=== PATIENT | male | born 1990 | race Hispanic/Latino ===

== ENCOUNTER 2020-05-29 08:47 | Emergency (ER) | payer OTHER ==
[2020-05-29 10:44] LABS: SARS-COV-2 RT PCR POSITIVE (NEGATIVE)
--- NOTE | 2020-05-29 10:49 | ER ---
Nurse's Notes [facility] Name: Marcelino Calderon Age: 29 yrs Sex: Male : 1990 Arrival Date: 05/29/2020 Time: 08:49 Bed 17 Private MD: Diagnosis: Coronavirus infection, unspecified;Viral pneumonia, unspecified Presentation: 05/29 09:28 Chief complaint: Patient states: i have been feverish for 3 days it comes and goes, my tw2 mom and dad came and they have covid and we live with them, dont have a cough, but i have NVD, decreased appetite, no taste or no smell, and body aches. Coronavirus screen: chills, diarrhea, fatigue, fever, muscle pain, nausea, loss of taste or smell, vomiting. Client presents with at least one sign or symptom that may indicate coronavirus-19. Standard/surgical mask placed on the client. Provider contacted for isolation considerations. Ebola Screen: Patient denies travel to an Ebola-affected area in the 21 days before illness onset. Initial Sepsis Screen: Does the patient meet any 2 criteria? No. Patient's initial sepsis screen is negative. Does the patient have a suspected source of infection? No. Patient's initial sepsis screen is negative. Risk Assessment: Do you want to hurt yourself or someone else? Patient reports no desire to harm self or others. Onset of symptoms was May 29, 2020. 09:28 Method Of Arrival: Ambulatory tw2 09:28 Acuity: RAFAEL 4 tw2 Triage Assessment: 09:30 General: Appears in no apparent distress. well groomed, Behavior is calm, cooperative, tw2 appropriate for age. Pain: Denies pain. EENT: No signs and/or symptoms were reported regarding the EENT system. Neuro: Level of Consciousness is awake, alert, obeys commands, Oriented to person, place, time, situation. Cardiovascular: Capillary refill < 3 seconds Patient's skin is warm and dry. Respiratory: Airway is patent Respiratory effort is even, unlabored, Respiratory pattern is regular, symmetrical. GI: Reports diarrhea, nausea, vomiting. : No signs and/or symptoms were reported regarding the genitourinary system. Derm: No signs and/or symptoms reported regarding the dermatologic system. Skin is intact, is healthy with good turgor. Musculoskeletal: Range of motion: intact in all extremities, pt reports body aches. Historical: - Allergies: :30 No Known Allergies; tw2 - Home Meds: :30 None [Active]; tw2 - PMHx: :30 Hypertension; tw2 - PSHx: :30 None; jaw surgery; tw2 - Immunization history:: Adult Immunizations. - Social history:: Smoking status: . Screenin:40 Abuse screen: Denies threats or abuse. Nutritional screening: No deficits noted. tw2 Tuberculosis screening: No symptoms or risk factors identified. Fall Risk None identified. Assessment: :31 Reassessment: see triage assessment. tw2 10:16 Reassessment: Patient appears in no apparent distress at this time. No changes from tw2 previously documented assessment. Patient and/or family updated on plan of care and expected duration. Pain level reassessed. Patient is alert, oriented x 3, equal unlabored respirations, skin warm/dry/pink. xray at bedside at this time. 11:03 Reassessment: Patient appears in no apparent distress at this time. No changes from tw2 previously documented assessment. Patient and/or family updated on plan of care and expected duration. Pain level reassessed. Patient is alert, oriented x 3, equal unlabored respirations, skin warm/dry/pink. Vital Signs: 09:28 BP 129 / 79; Pulse 95; Resp 18; Temp 97.6(O); Pulse Ox 95% on R/A; Weight 108.86 kg; tw2 Height 5 ft. 9 in. (175.26 cm); 10:16 BP 133 / 88; Pulse 92; Resp 19; Pulse Ox 94% on R/A; tw2 11:03 BP 128 / 86; Pulse 83; Resp 19; Pulse Ox 95% on R/A; tw2 09:28 Body Mass Index 35.44 (108.86 kg, 175.26 cm) tw2 ED Course: 08:49 Patient arrived in ED. ag5 09:17 Ervin Villafuerte PA is PHCP. jr8 09:17 Fabio Wang MD is Attending Physician. jr8 09:18 Bed in low position. Call light in reach. Pulse ox on. NIBP on. tw2 09:28 Yamile Nelson RN is Primary Nurse. tw2 09:30 Triage completed. tw2 09:31 Arm band placed on. tw2 09:40 No provider procedures requiring assistance completed. tw2 10:46 XRAY Chest (1 view) In Process Unspecified. EDMS 11:04 IV discontinued, intact, bleeding controlled, No redness/swelling at site. Pressure tw2 dressing applied. Administered Medications: No medications were administered Outcome: 10:48 Discharge ordered by MD. burnett 11:03 Discharged to home ambulatory. tw2 11:03 Condition: stable 11:03 Discharge instructions given to patient, Instructed on discharge instructions, follow up and referral plans. Demonstrated understanding of instructions, follow-up care, medications, Prescriptions given X 3. 11:04 Patient left the ED. tw2 Signatures: Dispatcher [employer] EDMS Ervin Villafuerte PA PA jr8 Yamile Nelson RN RN tw2 Scottie Gutierrez ag5 Corrections: (The following items were deleted from the chart) 09:52 09:41 CORONAVIRUS+MR.LAB.BRZ drawn and sent. tw2 EDMS 09:52 09:41 Influenza Screen (A \T\ B)+BA.LAB.BRZ drawn and sent. tw2 EDMS
--- NOTE | 2020-05-29 10:50 | EDPHYS ---
Physician Documentation [facility] Name: Marcelino Calderon Age: 29 yrs Sex: Male : 1990 Arrival Date: 05/29/2020 Time: 08:49 Bed 17 Private MD: ED Physician Fabio Wang HPI: 05/29 09:50 This 29 yrs old Male presents to ER via Ambulatory with complaints of Cough, jr8 Dizziness, Decreased Appetite. 09:50 The patient or guardian reports cough, that is intermittent, described as mild, with no jr8 sputum. Onset: The symptoms/episode began/occurred gradually. Severity of symptoms: At their worst the symptoms were mild, in the emergency department the symptoms are unchanged. Modifying factors: The symptoms are alleviated by nothing, the symptoms are aggravated by nothing. Associated signs and symptoms: Pertinent positives: fever, nausea, decreased appetite. The patient has not experienced similar symptoms in the past. The patient has not recently seen a physician. Stated that mom and dad were diagnosed with COVID. Now having symptoms including loss of taste and smell. Historical: - Allergies: 09:30 No Known Allergies; tw2 - Home Meds: 09:30 None [Active]; tw2 - PMHx: 09:30 Hypertension; tw2 - PSHx: 09:30 None; jaw surgery; tw2 - Immunization history:: Adult Immunizations. - Social history:: Smoking status: . ROS: 09:50 Eyes: Negative for injury, pain, redness, and discharge, ENT: Negative for injury, jr8 pain, and discharge, Neck: Negative for injury, pain, and swelling, Cardiovascular: Negative for chest pain, palpitations, and edema, Back: Negative for injury and pain, MS/Extremity: Negative for injury and deformity, Skin: Negative for injury, rash, and discoloration, Neuro: Negative for headache, weakness, numbness, tingling, and seizure. 09:50 Respiratory: Positive for cough, Negative for dyspnea on exertion, shortness of breath, sputum production, wheezing. 09:50 Abdomen/GI: Positive for nausea, diarrhea, Negative for abdominal pain, abdominal cramps, abdominal distension. Exam: 09:50 Eyes: Pupils equal round and reactive to light, extra-ocular motions intact. Lids and jr8 lashes normal. Conjunctiva and sclera are non-icteric and not injected. Cornea within normal limits. Periorbital areas with no swelling, redness, or edema. ENT: Nares patent. No nasal discharge, no septal abnormalities noted. Tympanic membranes are normal and external auditory canals are clear. Oropharynx with no redness, swelling, or masses, exudates, or evidence of obstruction, uvula midline. Mucous membranes moist. Neck: Trachea midline, no thyromegaly or masses palpated, and no cervical lymphadenopathy. Supple, full range of motion without nuchal rigidity, or vertebral point tenderness. No Meningismus. Cardiovascular: Regular rate and rhythm with a normal S1 and S2. No gallops, murmurs, or rubs. Normal PMI, no JVD. No pulse deficits. Respiratory: Lungs have equal breath sounds bilaterally, clear to auscultation and percussion. No rales, rhonchi or wheezes noted. No increased work of breathing, no retractions or nasal flaring. Abdomen/GI: Soft, non-tender, with normal bowel sounds. No distension or tympany. No guarding or rebound. No evidence of tenderness throughout. Back: No spinal tenderness. No costovertebral tenderness. Full range of motion. Skin: Warm, dry with normal turgor. Normal color with no rashes, no lesions, and no evidence of cellulitis. MS/ Extremity: Pulses equal, no cyanosis. Neurovascular intact. Full, normal range of motion. Neuro: Awake and alert, GCS 15, oriented to person, place, time, and situation. Cranial nerves II-XII grossly intact. Motor strength 5/5 in all extremities. Sensory grossly intact. Vital Signs: 09:28 BP 129 / 79; Pulse 95; Resp 18; Temp 97.6(O); Pulse Ox 95% on R/A; Weight 108.86 kg; tw2 Height 5 ft. 9 in. (175.26 cm); 10:16 BP 133 / 88; Pulse 92; Resp 19; Pulse Ox 94% on R/A; tw2 11:03 BP 128 / 86; Pulse 83; Resp 19; Pulse Ox 95% on R/A; tw2 09:28 Body Mass Index 35.44 (108.86 kg, 175.26 cm) tw2 MDM: 09:18 Patient medically screened. [facility] 10:46 Data reviewed: vital signs, nurses notes, lab test result(s), radiologic studies, plain jr films. Data interpreted: Pulse oximetry: on room air is 94 %. Interpretation: normal. Counseling: I had a detailed discussion with the patient and/or guardian regarding: the historical points, exam findings, and any diagnostic results supporting the discharge/admit diagnosis, lab results, radiology results, the need for outpatient follow up, a family practitioner, to return to the emergency department if symptoms worsen or persist or if there are any questions or concerns that arise at home. 05/29 09:29 Order name: XRAY Chest (1 view); Complete Time: 16:41 jr8 05/29 10:44 Order name: COVID-19/FLU A+B; Complete Time: 10:52 EDMS Administered Medications: No medications were administered Disposition: 14:20 Co-signature as Attending Physician, Fabio Wang MD. rn Disposition: 05/29/20 10:48 Discharged to Home. Impression: Coronavirus infection, unspecified, Viral pneumonia, unspecified. - Condition is Stable. - Discharge Instructions: COVID-19. - Prescriptions for Prednisone 20 mg Oral Tablet - take 1 tablet by ORAL route once daily for 7 days; 7 tablet. Zofran 4 mg Oral Tablet - take 1 tablet by ORAL route every 12 hours As needed; 20 tablet. promethazine- DM - take 5 milliliter by ORAL route every 6 hours As needed; 120 milliliter. - Medication Reconciliation Form, Thank You Letter, Antibiotic Education, Prescription Opioid Use, Work release form form. - Follow up: Private Physician; When: 7 - 10 days; Reason: Recheck today's complaints, Continuance of care, Re-evaluation by your physician. - Problem is new. - Symptoms are unchanged. Signatures: Dispatcher [employer] [facility] Fabio Wang MD MD rn Roszak, Josh, PA PA jr8 Yamile Nelson RN RN tw2 Corrections: (The following items were deleted from the chart) 09:29 Influenza Screen (A \T\ B)+BA.LAB.BRZ ordered. [facility] 52 09:29 CORONAVIRUS+MR.LAB.BRZ ordered. [facility] EDMI 11:04 10:48 05/29/2020 10:48 Discharged to Home. Impression: Coronavirus infection, tw2 unspecified; Viral pneumonia, unspecified. Condition is Stable. Forms are Medication Reconciliation Form, Thank You Letter, Antibiotic Education, Prescription Opioid Use. Follow up: Private Physician; When: 7 - 10 days; Reason: Recheck today's complaints, Continuance of care, Re-evaluation by your physician. Problem is new. Symptoms are unchanged. jr8
--- NOTE | 2020-05-29 11:00 | RAD REPORT ---
EXAM DESCRIPTION: RAD - Chest Single View - 05/29/2020 10:46 am CLINICAL HISTORY: Fever;Dyspnea Chest pain. COMPARISON: No comparisons FINDINGS: Portable technique limits examination quality. Mild interstitial opacities could indicate viral pneumonitis/bronchitis. The heart is normal in size. No displaced fractures.
== END 2020-05-29 11:04 | disposition home or self-care (01) ==
LOC: ER 08:47
DX: U07.1 COVID-19 (principal); J12.82 Pneumonia due to coronavirus disease 2019
CPT/HCPCS: 0240U; 71045; 99283